=== PATIENT | female | born 1995 | race American Indian/Alaskan Native ===

== ENCOUNTER 2020-04-19 16:19 | Outpatient (CLI) | payer OTHER ==
[2020-04-19 17:36] VITALS: BP 109/56
[2020-04-19 18:23] LABS: Bilirubin,Urine NEG (Negative); Blood,Urine NEG (Negative); Color,Urine Yellow (Yellow); Mucus,Urine FEW /HPF; Protein,Urine <15 mg/dL mg/dL (Negative); Urobilinogen,Urine < 2.0 mg/dL (<2.0)
[2020-04-19] MEDS ORDERED: LACTATED RINGERS 1,000 ML IV ONE (18:24)
[2020-04-19 18:26] LABS: RBC,Urine < 1.0 /HPF (0.0-6.0)
--- NOTE | 2020-04-19 22:38 | Ultrasound Report ---
ULTRASOUND OBSTETRIC LIMITED INDICATION / CLINICAL INFORMATION: decreased movement. Clinical Gestational Age (GA): 24.6 weeks.days COMPARISON: None available. FINDINGS: HEART RATE (beats per minute): 139 AMNIOTIC FLUID INDEX = subjectively within normal limits PRESENTATION: Cephalic. PLACENTA: Anterior. Grade 0. ADDITIONAL FINDINGS: None. IMPRESSION: 1. Single living intrauterine gestation in cephalic position with heart rate of 139 bpm. Signer Name: Augustin Mcgill MD Signed: 04/19/2020 10:34 PM Workstation Name: [id number]
== END 2020-04-19 20:21 | disposition home or self-care (01) ==
LOC: TRG 16:19 → APU 19:14 → TRG 20:21
PROVIDERS: ATTEND Obstetrics & Gynecology
DX: O36.8120 Decreased fetal movements, second trimester, not applicable or unspecified (principal); O47.02 False labor before 37 completed weeks of gestation, second trimester; Z3A.24 24 weeks gestation of pregnancy
CPT/HCPCS: 59025; 76815; 81001; 96360; 96361; J7120